=== PATIENT | female | born 1980 | race Caucasian/White ===

== ENCOUNTER 2021-10-09 03:39 | Inpatient (IN) | payer OTHER ==
[2021-10-09] MEDS ORDERED: Acetaminophen 500 MG Tab PO ONE (06:15)
[2021-10-09] MEDS ORDERED: Celecoxib 200 MG Cap PO ONE (06:15)
[2021-10-09] MEDS ORDERED: Scopolamine 1.5 MG Transdermal Patch TOP SCH (06:15)
[2021-10-09] MEDS: Dextrose 5%-Lactated Ringers 1,000 ML IV SCH ×4 (06:15→21:30)
[2021-10-09] MEDS ORDERED: Bupivacaine 0.5% 50 ML MDV ONE (06:38)
[2021-10-09] MEDS ORDERED: Bupivacaine 0.5%/EPINEPHrine 1:200,000 50 ML MDV ONE (06:39)
[2021-10-09] MEDS ORDERED: Lidocaine 1% with EPINEPHrine 1:100,000 50 ML MDV ONE (06:39)
[2021-10-09] MEDS ORDERED: Dexamethasone 4 MG/ML SDV ONE (07:06)
[2021-10-09] MEDS ORDERED: fentaNYL 250 MCG/5 ML SDV ONE ×2 (07:06→08:31)
[2021-10-09] MEDS ORDERED: Neostigmine Methylsulfate 1 MG/ML 5 ML Syringe ONE (07:06)
[2021-10-09] MEDS ORDERED: Propofol 200 MG/20 ML SDV ONE (07:06)
[2021-10-09] MEDS ORDERED: Succinylcholine 200 MG/10 ML MDV ONE (07:06)
[2021-10-09] MEDS ORDERED: Rocuronium 50 MG/5 ML Vial ONE (07:06)
[2021-10-09] MEDS ORDERED: Ondansetron 4 MG/2 ML SDV ONE (07:06)
[2021-10-09] MEDS ORDERED: Glycopyrrolate 0.2 MG/ML 5 ML MDV ONE (07:06)
[2021-10-09] MEDS ORDERED: cefOXitin 2 GM in Sodium Chloride 0.9% 50 ML IV ONE (07:15)
[2021-10-09] MEDS ORDERED: Meropenem 500 MG SDV ONE (07:20)
[2021-10-09] MEDS ORDERED: Lidocaine 1% 2 ML ONE (07:35)
[2021-10-09] MEDS ORDERED: Ketamine 18 MG in Sodium Chloride 0.9% 19.82 ML IV SCH (07:45)
[2021-10-09] MEDS ORDERED: Ketamine 500 MG/5 ML MDV IV SCH (07:45)
[2021-10-09] MEDS ORDERED: fentaNYL 100 MCG/2 ML SDV ONE (09:33)
[2021-10-09] MEDS ORDERED: diphenhydrAMINE 50 MG/ML SDV IVPUSH PRN ×2 (09:57→12:00)
[2021-10-09] MEDS ORDERED: diphenhydrAMINE 25 MG Cap PO PRN (09:57)
[2021-10-09] MEDS ORDERED: Naloxone 0.4 MG/ML SDV IVPUSH PRN (09:57)
[2021-10-09] MEDS ORDERED: Ondansetron 4 MG/2 ML SDV IVPUSH PRN ×2 (09:57→12:00)
[2021-10-09] MEDS: HYDROmorphone/Normal Saline 6 MG/30 ML PCA Vial IV PRN ×2 (10:06→15:23)
[2021-10-09] MEDS ORDERED: hydrOXYzine HCL 100 MG/2 ML SDV IM ONE (10:12)
[2021-10-09] MEDS ORDERED: Naloxone 0.4 MG/ML SDV IV PRN (11:00)
[2021-10-09] MEDS: Cyclobenzaprine 10 MG Tab PO PRN ×2 (11:58→20:53)
[2021-10-09] MEDS ORDERED: Acetaminophen 500 MG Tab PO PRN (12:00)
[2021-10-09] MEDS ORDERED: Labetalol 20 MG/4 ML Syringe IVPUSH PRN (12:00)
[2021-10-09] MEDS ORDERED: Metoclopramide 10 MG/2 ML SDV IVPUSH PRN (12:00)
[2021-10-09] MEDS ORDERED: hydrOXYzine HCL 100 MG/2 ML SDV IM PRN (12:00)
[2021-10-09] MEDS ORDERED: Pantoprazole 40 MG Vial IVPUSH SCH (12:00)
[2021-10-09] MEDS: SCOPOLAMINE PATCH CHECK TOP SCH (13:33)
[2021-10-09] MEDS: amLODIPine 5 MG Tab PO SCH (13:34)
[2021-10-09] MEDS: Acetaminophen 500 MG Tab PO SCH ×2 (13:34→21:15)
[2021-10-09] MEDS: cefOXitin 2 GM in Sodium Chloride 0.9% 50 ML IV SCH ×2 (13:58→19:31)
[2021-10-09] MEDS: MVI, Adult with Vitamin K 10 ML, Thiamine 200 MG, Zinc/Copper/Manganese/Selenium 1 ML i... IV SCH ×4 (16:11)
[2021-10-09] MEDS: Heparin Sodium 5,000 Units/ML Vial SUBCUT SCH (17:28)
[2021-10-09] MEDS: traZODone 50 MG Tab PO SCH (20:54)
[2021-10-10] MEDS: cefOXitin 2 GM in Sodium Chloride 0.9% 50 ML IV SCH ×2 (02:46→07:58)
[2021-10-10] MEDS: Dextrose 5%-Lactated Ringers 1,000 ML IV SCH ×2 (02:50→09:36)
[2021-10-10] MEDS: HYDROmorphone/Normal Saline 6 MG/30 ML PCA Vial IV PRN ×3 (03:08→20:08)
[2021-10-10] MEDS ORDERED: Iopamidol 612 MG/ML 50 ML SDV PO STA (04:04)
[2021-10-10] MEDS: Cyclobenzaprine 10 MG Tab PO PRN (05:26)
[2021-10-10] MEDS: Acetaminophen 500 MG Tab PO SCH ×3 (05:27→21:21)
[2021-10-10] MEDS: Heparin Sodium 5,000 Units/ML Vial SUBCUT SCH ×2 (05:28→18:04)
[2021-10-10] MEDS ORDERED: Ondansetron 4 MG Tab.DIS PO PRN (07:17)
[2021-10-10] MEDS: Docusate Sodium 100 MG Cap PO SCH ×2 (09:41→20:00)
[2021-10-10] MEDS: Celecoxib 200 MG Cap PO SCH ×2 (09:41→20:00)
[2021-10-10] MEDS: Bisacodyl 5 MG Tab PO SCH ×2 (09:42→20:00)
[2021-10-10] MEDS: Propranolol 60 MG Cap.ER PO SCH (09:43)
[2021-10-10] MEDS: Escitalopram 20 MG Tab PO SCH (09:44)
[2021-10-10] MEDS: amLODIPine 5 MG Tab PO SCH (09:45)
[2021-10-10] MEDS: SCOPOLAMINE PATCH CHECK TOP SCH (09:47)
[2021-10-10] MEDS ORDERED: Benzocaine/Cetylpyridinium/Menthol Lozenge MUCMEM PRN (10:19)
[2021-10-10] MEDS: Pantoprazole 40 MG Tab.CR PO SCH (11:21)
[2021-10-10] MEDS: MVI, Adult with Vitamin K 10 ML, Thiamine 200 MG, Zinc/Copper/Manganese/Selenium 1 ML i... IV SCH ×4 (16:40)
[2021-10-10] MEDS: traZODone 50 MG Tab PO SCH (20:00)
[2021-10-11] MEDS: Heparin Sodium 5,000 Units/ML Vial SUBCUT SCH ×2 (05:23→17:22)
[2021-10-11] MEDS: Acetaminophen 500 MG Tab PO SCH ×3 (05:23→22:00)
[2021-10-11] MEDS: HYDROmorphone/Normal Saline 6 MG/30 ML PCA Vial IV PRN (06:06)
[2021-10-11] MEDS ORDERED: oxyCODONE 5 MG Tab PO PRN (07:23)
[2021-10-11] MEDS ORDERED: Magnesium Hydroxide 400 MG/5 ML Susp 30 ML Cup PO PRN (07:39)
[2021-10-11] MEDS: Celecoxib 200 MG Cap PO SCH ×2 (08:33→20:30)
[2021-10-11] MEDS: Docusate Sodium 100 MG Cap PO SCH ×2 (08:34→20:30)
[2021-10-11] MEDS: Pantoprazole 40 MG Tab.CR PO SCH (08:34)
[2021-10-11] MEDS: Bisacodyl 5 MG Tab PO SCH ×2 (08:34→20:30)
[2021-10-11] MEDS: Propranolol 60 MG Cap.ER PO SCH (08:34)
[2021-10-11] MEDS: Escitalopram 20 MG Tab PO SCH (08:34)
[2021-10-11] MEDS: SCOPOLAMINE PATCH CHECK TOP SCH (08:34)
[2021-10-11] MEDS: amLODIPine 5 MG Tab PO SCH (08:34)
[2021-10-11] MEDS ORDERED: Cyanocobalamin (Vitamin B12) 1,000 MCG/ML SDV IM ONE (09:00)
[2021-10-11] MEDS: hydrOXYzine HCl 25 MG Tab PO PRN ×2 (13:27→20:32)
[2021-10-11] MEDS: Cyclobenzaprine 10 MG Tab PO PRN (14:22)
[2021-10-11] MEDS: oxyCODONE 5 MG Tab PO PRN ×2 (16:51→20:32)
[2021-10-11] MEDS: Dextrose 5%-Lactated Ringers 1,000 ML IV SCH (17:53)
[2021-10-11] MEDS: traZODone 50 MG Tab PO SCH (20:31)
[2021-10-12] MEDS: oxyCODONE 5 MG Tab PO PRN ×4 (01:31→13:53)
[2021-10-12] MEDS: Cyclobenzaprine 10 MG Tab PO PRN (01:31)
[2021-10-12] MEDS: Acetaminophen 500 MG Tab PO SCH ×2 (07:47→13:51)
[2021-10-12] MEDS: Pantoprazole 40 MG Tab.CR PO SCH (07:47)
[2021-10-12] MEDS: hydrOXYzine HCl 25 MG Tab PO SCH ×2 (07:48→13:51)
[2021-10-12] MEDS: Heparin Sodium 5,000 Units/ML Vial SUBCUT SCH (07:48)
[2021-10-12] MEDS: Bisacodyl 5 MG Tab PO SCH (09:49)
[2021-10-12] MEDS: Docusate Sodium 100 MG Cap PO SCH (09:49)
[2021-10-12] MEDS: Celecoxib 200 MG Cap PO SCH (09:49)
[2021-10-12] MEDS: Escitalopram 20 MG Tab PO SCH (09:50)
[2021-10-12] MEDS: Propranolol 60 MG Cap.ER PO SCH (09:50)
[2021-10-12] MEDS: amLODIPine 5 MG Tab PO SCH (09:50)
== END 2021-10-12 16:55 | disposition home or self-care (01) | DRG 327 ==
LOC: JP.SDS 05:39 → EDSTATUS 07:15 → JP.MS 09:50
PROVIDERS: ADMIT Surgery; ATTEND Surgery
PROC: 0D160ZA Bypass Stomach to Jejunum, Open Approach (ICD-10-PCS; principal; 2021-10-09)
PROC: 0DQ80ZZ Repair Small Intestine, Open Approach (ICD-10-PCS; 2021-10-09)
PROC: 3E0M05Z Introduction of Adhesion Barrier into Peritoneal Cavity, Open Approach (ICD-10-PCS; 2021-10-09)
PROC: 02HV33Z Insertion of Infusion Device into Superior Vena Cava, Percutaneous Approach (ICD-10-PCS; 2021-10-09)
PROC: 0DJ08ZZ Inspection of Upper Intestinal Tract, Via Natural or Artificial Opening Endoscopic (ICD-10-PCS; 2021-10-09)
DX: K95.89 Other complications of other bariatric procedure (principal); K90.9 Intestinal malabsorption, unspecified; K56.51 Intestinal adhesions [bands], with partial obstruction; Y83.8 Other surgical procedures as the cause of abnormal reaction of the patient, or of later complication, without mention of misadventure at the time of the procedure; Z98.84 Bariatric surgery status; E53.8 Deficiency of other specified B group vitamins; E55.9 Vitamin D deficiency, unspecified; F41.9 Anxiety disorder, unspecified; M19.90 Unspecified osteoarthritis, unspecified site; F17.210 Nicotine dependence, cigarettes, uncomplicated; F32.A Depression, unspecified; I10 Essential (primary) hypertension; K21.9 Gastro-esophageal reflux disease without esophagitis; D50.9 Iron deficiency anemia, unspecified; G25.81 Restless legs syndrome; Z98.890 Other specified postprocedural states; Z98.51 Tubal ligation status; Z79.899 Other long term (current) drug therapy; Z91.011 Allergy to milk products
CPT/HCPCS: 36415; 71045; 71045-26; 74240; 74240-26; 86850; 86900; 86901; 88302; 88307; A9270-GY; C9113; J0171; J0330; J0694; J1100; J1170; J1642; J1644; J2020; J2185; J2405; J2704; J2710; J2795; J3010; J3410; J3411; J3420; J3490; J7121; Q9967